=== PATIENT | male | born 1990 | race Caucasian/White ===

== ENCOUNTER 2018-12-15 18:43 | Inpatient (IN) | payer OTHER ==
[2018-12-15] MEDS ORDERED: VANCOMYCIN IV PER PHARMACY XX (21:30)
[2018-12-15] MEDS ORDERED: ONDANSETRON 4 MG TAB PO (21:30)
[2018-12-15] MEDS ORDERED: NACL 0.9% 3 ML SYG IV (21:30)
[2018-12-15] MEDS ORDERED: DOCUSATE SODIUM 100 MG CAP PO (21:30)
[2018-12-15] MEDS ORDERED: PENDING SANTYL ORDER FOR WOUND CARE XX (22:30)
[2018-12-15] MEDS: FAMOTIDINE 20 MG TAB PO (22:31)
[2018-12-15] MEDS: TRIMETHOPRIM/SULFAMETHOX (DS) TAB PO (22:31)
[2018-12-15] MEDS: ACETAMINOPHEN 325 MG TAB PO (22:31)
[2018-12-15] MEDS: VANCOMYCIN 1 GM 250 ML IVPB (22:32)
[2018-12-16 05:56] LABS: ADD MAN DIFF? NO
[2018-12-16 06:02] LABS: BASOPHILS % 0.6 % (0.0-2.0); EOSINOPHILS # 0.3 10^3/ul (0.0-0.5); EOSINOPHILS % 4.5 % (0.0-7.0); HEMATOCRIT 43.6 % (42.0-52.0); LYMPHOCYTES # 1.5 10^3/ul (0.8-2.9); LYMPHOCYTES % 23.8 % (15.0-51.0); MEAN CORPUSCULAR HEMOGLOBIN 31.7 pg (29.0-33.0); MEAN CORPUSCULAR HGB CONC 34.4 g/dl (32.0-37.0); MEAN CORPUSCULAR VOLUME 92.2 fl (82.0-101.0); MEAN PLATELET VOLUME 9.6 fl (7.4-10.4); MONOCYTE # 0.5 10^3/ul (0.3-0.9); MONOCYTES % 8.7 % (0.0-11.0); NEUTROPHIL # 3.9 10^3/ul (1.6-7.5); NEUTROPHILS % 62.2 % (39.0-77.0); PLATELET COUNT 231 10^3/UL (140-415); RED BLOOD COUNT 4.73 10^6/ul (4.70-6.10); RED CELL DISTRIBUTION WIDTH 12.5 % (11.5-14.5)
[2018-12-16 06:02] LABS: WHITE BLOOD COUNT 6.2 10^3/ul (4.8-10.8)
[2018-12-16] MEDS: VANCOMYCIN 1 GM 250 ML IVPB ×3 (06:17→22:26)
[2018-12-16 06:30] LABS: HEMOGLOBIN A1C 4.7 % (0-5.9)
[2018-12-16 06:41] LABS: ANION GAP 6 (5-13); BLOOD UREA NITROGEN 8 mg/dl (7-20); CALCIUM 9.1 mg/dl (8.4-10.2); CARBON DIOXIDE 27 mmol/L (21-31); CHLORIDE 107 mmol/L (97-110); CREATININE 0.83 mg/dl (0.61-1.24); Estimated GFR > 60 mL/min (>60); GLUCOSE 87 mg/dl (70-220); SODIUM 140 mmol/L (135-144)
[2018-12-16 08:13] LABS: FREE THYROXINE INDEX (Calc) 3.54 ug/ml (0.65-3.89); T3 UPTAKE 37.7 % (23.5-40.5); T4 (THYROXINE) 9.4 ug/dl (5.5-11.0)
[2018-12-16] MEDS: TRIMETHOPRIM/SULFAMETHOX (DS) TAB PO ×2 (08:58→20:50)
[2018-12-16] MEDS: FAMOTIDINE 20 MG TAB PO ×2 (08:58→20:50)
[2018-12-16] MEDS: NICOTINE (14 MG/24 HR) PATCH TRANSDERM (09:00)
[2018-12-16] MEDS: HYDROCODONE/APAP (5/325) TAB PO ×3 (09:50→20:50)
[2018-12-16] MEDS: LIDOCAINE 1% (MPF) 5 ML VIAL SC (14:35)
[2018-12-16 21:36] LABS: VANCOMYCIN,TROUGH 5.5 ug/ml (10.0-20.0)
[2018-12-17] MEDS: VANCOMYCIN HCL 1.5 GM in SOD CHLORIDE 0.9% 250 ML IVPB ×2 (05:50→13:43)
[2018-12-17] MEDS: HYDROCODONE/APAP (5/325) TAB PO ×3 (07:58→16:49)
[2018-12-17] MEDS: FAMOTIDINE 20 MG TAB PO (09:25)
[2018-12-17] MEDS: TRIMETHOPRIM/SULFAMETHOX (DS) TAB PO (09:25)
[2018-12-17] MEDS: NICOTINE (14 MG/24 HR) PATCH TRANSDERM (09:28)
== END 2018-12-17 19:35 | DRG 603 ==
LOC: 2NE 18:43
PROC: 02HV33Z Insertion of Infusion Device into Superior Vena Cava, Percutaneous Approach (ICD-10-PCS; principal; 2018-12-17)
DX: L03.011 Cellulitis of right finger (principal); K40.90 Unilateral inguinal hernia, without obstruction or gangrene, not specified as recurrent; Z59.0 Homelessness
CPT/HCPCS: 36569; 71045; 76937; 80048; 80202; 83036; 84436; 84479; 85025; 99217